=== PATIENT | female | born 1990 | race Caucasian/White ===

== ENCOUNTER 2022-06-03 08:43 | Inpatient (IN) | payer BC ==
[2022-06-03] MEDS ORDERED: Lidocaine 1% 50 ML MDV INJECT PRN (11:46)
[2022-06-03] MEDS ORDERED: Nalbuphine HCl 10 MG/ 1ML Amp IVPUSH PRN (11:46)
[2022-06-03] MEDS ORDERED: Oxytocin/Lactated Ringers 10 UNIT/1,000 ML BAG IV SCH ×2 (12:00)
[2022-06-03] MEDS: Lactated Ringers 1,000 ML IV SCH ×3 (12:20→15:20)
[2022-06-03] MEDS ORDERED: ePHEDrine 50 MG/ML SDV IVPUSH PRN (12:35)
[2022-06-03] MEDS ORDERED: fentaNYL 100 MCG/2 ML SDV EPIDUR PRN (12:35)
[2022-06-03] MEDS ORDERED: diphenhydrAMINE 50 MG/ML SDV IVPUSH PRN (12:35)
[2022-06-03] MEDS: Bupivacaine/fentaNYL/NS 100 ML Bag EPIDUR PRN ×2 (13:01→21:40)
[2022-06-04] MEDS ORDERED: Witch Hazel Medicated Pads 40/Jar TOP PRN (01:25)
[2022-06-04] MEDS ORDERED: Acetaminophen 325 MG Tab PO PRN (01:25)
[2022-06-04] MEDS ORDERED: Benzocaine/Menthol 20%-0.5% Spray 78 GM Cannister TOP PRN (01:25)
[2022-06-04] MEDS: Ibuprofen 600 MG Tab PO PRN ×3 (02:21→15:26)
[2022-06-04] MEDS: Docusate Sodium 100 MG Cap PO PRN (03:13)
[2022-06-05] MEDS: Ibuprofen 600 MG Tab PO PRN (09:01)
[2022-06-05] MEDS: Docusate Sodium 100 MG Cap PO PRN (09:01)
== END 2022-06-05 19:00 | disposition home or self-care (01) | DRG 560 ==
LOC: JD.OBCHECK 08:43 → JD.OB 08:44 → JD.OBCHECK 12:23 → JD.OB 12:24 → OBSVTOIN 06-04 00:21 → JD.OB 06-04 00:22
PROVIDERS: ADMIT Obstetrics & Gynecology; ATTEND Obstetrics & Gynecology
PROC: 10907ZC Drainage of Amniotic Fluid, Therapeutic from Products of Conception, Via Natural or Artificial Opening (ICD-10-PCS; principal; 2022-06-04)
PROC: 10E0XZZ Delivery of Products of Conception, External Approach (ICD-10-PCS; principal; 2022-06-04)
PROC: 3E0R3BZ Introduction of Anesthetic Agent into Spinal Canal, Percutaneous Approach (ICD-10-PCS; principal; 2022-06-04)
PROC: 0KQM0ZZ Repair Perineum Muscle, Open Approach (ICD-10-PCS; principal; 2022-06-04)
DX: O69.81X0 Labor and delivery complicated by cord around neck, without compression, not applicable or unspecified (principal); Z3A.39 39 weeks gestation of pregnancy; Z37.0 Single live birth; O70.1 Second degree perineal laceration during delivery
CPT/HCPCS: 36415; 51701; 51702; 59025; 59409; 85025; 86592; A9270-GY; J1200; J2590; J3010; J7120

== ENCOUNTER 2024-07-23 07:10 | Inpatient (IN) | payer BC ==
[~2024-07-23 07:10] MED LIST: Bupivacaine 0.25% 10 ML SDV ONE; Sodium Chloride 0.9% 10 ML SDV ONE
[2024-07-23] MEDS ORDERED: Lidocaine 1% 50 ML MDV INJECT PRN (07:25)
[2024-07-23] MEDS ORDERED: Calcium Carbonate 500 MG Tab.Chew PO PRN (07:25)
[2024-07-23] MEDS ORDERED: Sodium Chloride 0.9% 10 ML Syringe FLUSH PRN (07:25)
[2024-07-23] MEDS ORDERED: Ondansetron 4 MG/2 ML SDV IVPUSH PRN (07:25)
[2024-07-23] MEDS ORDERED: Oxytocin/0.9 % Sodium Chloride 30 UNIT/500 ML BAG IV SCH (07:30)
[2024-07-23 07:58] LABS: BASOPHILS PERCENT AUTO 0.4 % (0.0-1.0); EOSINOPHILS ABSOLUTE AUTO 0.1 K/mm3 (0.0-0.4); EOSINOPHILS PERCENT AUTO 1.2 % (0.0-6.0); HEMATOCRIT 36.5 % (37.0-47.0); HEMOGLOBIN 11.9 gm/dl (12.0-16.0); IMMATURE GRAN ABSOLUTE AUTO 0.03 K/mm3 (0.00-0.05); IMMATURE GRAN PERCENT AUTO 0.4 % (0.0-0.4); LYMPHOCYTES ABSOLUTE AUTO 1.8 K/mm3 (1.0-4.8); LYMPHOCYTES PERCENT AUTO 22.6 % (24.0-44.0); MEAN CORPUSCULAR HEMOGLOBIN 28.3 pg (28.0-32.0); MEAN CORPUSCULAR HGB CONC 32.6 g/dl (32.0-36.0); MEAN CORPUSCULAR VOLUME 86.7 fl (83.0-99.0); MONOCYTES ABSOLUTE AUTO 0.6 K/mm3 (0.0-0.8); NEUTROPHILS ABSOLUTE AUTO 5.5 K/mm3 (1.8-7.7); NEUTROPHILS PERCENT AUTO 68.4 % (41.0-71.0); PLATELET COUNT,PLT 178 K/mm3 (150-400); RED BLOOD CELL COUNT 4.21 M/mm3 (4.10-5.30); WHITE BLOOD CELL COUNT,WBC 8.02 K/mm3 (3.9-11.3)
[2024-07-23] MEDS: Lactated Ringers 1,000 ML IV SCH (10:25)
[2024-07-23] MEDS: Oxytocin/0.9 % Sodium Chloride 30 UNIT/500 ML BAG IV SCH (10:25)
[2024-07-23] MEDS ORDERED: ePHEDrine 50 MG/ML SDV IVPUSH PRN (13:27)
[2024-07-23] MEDS ORDERED: diphenhydrAMINE 50 MG/ML SDV IVPUSH PRN (13:27)
[2024-07-23] MEDS: fentaNYL 100 MCG/2 ML SDV EPIDUR PRN (13:37)
[2024-07-23] MEDS: Bupivacaine/fentaNYL/NS 100 ML Bag EPIDUR PRN (13:38)
[2024-07-23] MEDS ORDERED: Magnesium Hydroxide 400 MG/5 ML Susp 30 ML Cup PO PRN (19:14)
[2024-07-23] MEDS ORDERED: Hydrocortisone Acetate 25 MG Supp RECTAL PRN (19:14)
[2024-07-23] MEDS ORDERED: Simethicone 80 MG Tab.Chew PO PRN (19:14)
[2024-07-23] MEDS ORDERED: Oxytocin/Lactated Ringers 30 UNIT/500 ML BAG IV SCH (19:15)
[2024-07-23 19:16] LABS: BASOPHILS PERCENT AUTO 0.2 % (0.0-1.0); EOSINOPHILS ABSOLUTE AUTO 0.1 K/mm3 (0.0-0.4); EOSINOPHILS PERCENT AUTO 0.4 % (0.0-6.0); HEMATOCRIT 32.9 % (37.0-47.0); HEMOGLOBIN 10.6 gm/dl (12.0-16.0); IMMATURE GRAN ABSOLUTE AUTO 0.08 K/mm3 (0.00-0.05); IMMATURE GRAN PERCENT AUTO 0.5 % (0.0-0.4); LYMPHOCYTES ABSOLUTE AUTO 1.9 K/mm3 (1.0-4.8); LYMPHOCYTES PERCENT AUTO 10.6 % (24.0-44.0); MEAN CORPUSCULAR HEMOGLOBIN 28.6 pg (28.0-32.0); MEAN CORPUSCULAR HGB CONC 32.2 g/dl (32.0-36.0); MEAN CORPUSCULAR VOLUME 88.7 fl (83.0-99.0); MEAN PLATELET VOLUME 11.3 fl (9.4-12.3); MONOCYTES ABSOLUTE AUTO 0.9 K/mm3 (0.0-0.8); MONOCYTES PERCENT AUTO 5.1 % (0.0-8.0); NEUTROPHILS ABSOLUTE AUTO 14.6 K/mm3 (1.8-7.7); NEUTROPHILS PERCENT AUTO 83.2 % (41.0-71.0); PLATELET COUNT,PLT 182 K/mm3 (150-400); RED BLOOD CELL COUNT 3.71 M/mm3 (4.10-5.30); WHITE BLOOD CELL COUNT,WBC 17.55 K/mm3 (3.9-11.3)
[2024-07-23 19:33] LABS: FIBRINOGEN 309 mg/dL (187-446)
[2024-07-23 19:34] LABS: PROTHROMBIN TIME 9.8 SECONDS (9.7-12.0)
[2024-07-23 19:35] LABS: PTT,PARTIAL THROMBOPLSTIN TIME 22.9 SECONDS (21.7-31.4)
[2024-07-23 19:36] LABS: INR < 0.93
[2024-07-23] MEDS: Ibuprofen 600 MG Tab PO SCH (20:23)
[2024-07-23] MEDS: Acetaminophen 325 MG Tab PO PRN (21:16)
[2024-07-23] MEDS: Ondansetron 4 MG/2 ML SDV IVPUSH ONE (21:17)
[2024-07-23] MEDS: Witch Hazel Medicated Pads 40/Jar TOP PRN (21:42)
[2024-07-23] MEDS: Benzocaine/Menthol 20%-0.5% Spray 78 GM Cannister TOP PRN (21:42)
[2024-07-24 00:54] LABS: HEMATOCRIT 27.4 % (37.0-47.0); MEAN CORPUSCULAR HEMOGLOBIN 28.4 pg (28.0-32.0); MEAN CORPUSCULAR HGB CONC 32.5 g/dl (32.0-36.0); MEAN CORPUSCULAR VOLUME 87.5 fl (83.0-99.0); PLATELET COUNT,PLT 153 K/mm3 (150-400); RED BLOOD CELL COUNT 3.13 M/mm3 (4.10-5.30); WHITE BLOOD CELL COUNT,WBC 15.95 K/mm3 (3.9-11.3)
[2024-07-24 01:01] LABS: HEMOGLOBIN 8.9 gm/dl (12.0-16.0)
[2024-07-24] MEDS: Lactated Ringers 1,000 ML IV ONE (02:01)
[2024-07-24] MEDS: Docusate Sodium 100 MG Cap PO PRN (03:19)
[2024-07-24] MEDS: Ferrous Sulfate 324 MG Tab.EC PO SCH (07:01)
[2024-07-24] MEDS ORDERED: CAFFEINE CITRATE IV ONE (08:49)
[2024-07-24] MEDS ORDERED: SODIUM CHLORIDE 0.9% IV ONE (08:49)
[2024-07-24] MEDS: Sodium Chloride 0.9% 1,000 ML IV ONE (09:05)
[2024-07-24] MEDS: Acetaminophen/Butalbital/Caffeine 325-50-40 MG Tab PO ONE (09:24)
[2024-07-24] MEDS: Prenatal Multivitamin with Calcium/Folic Acid/Iron Tab PO SCH (09:25)
[2024-07-24] MEDS: Sodium Chloride 0.9% 1,000 ML ONE (09:29)
== END 2024-07-24 18:50 | disposition home or self-care (01) | DRG 560 ==
LOC: JD.OB 07:10 → OBSVTOIN 19:04 → JD.OB 19:04
PROVIDERS: ADMIT Obstetrics & Gynecology; ATTEND Obstetrics & Gynecology
PROC: 10E0XZZ Delivery of Products of Conception, External Approach (ICD-10-PCS; principal; 2024-07-23)
PROC: 10907ZC Drainage of Amniotic Fluid, Therapeutic from Products of Conception, Via Natural or Artificial Opening (ICD-10-PCS; 2024-07-23)
PROC: 3E033VJ Introduction of Other Hormone into Peripheral Vein, Percutaneous Approach (ICD-10-PCS; 2024-07-23)
PROC: 0KQM0ZZ Repair Perineum Muscle, Open Approach (ICD-10-PCS; 2024-07-23)
PROC: 3E0R3BZ Introduction of Anesthetic Agent into Spinal Canal, Percutaneous Approach (ICD-10-PCS; 2024-07-23)
PROC: 00HU33Z Insertion of Infusion Device into Spinal Canal, Percutaneous Approach (ICD-10-PCS; 2024-07-23)
DX: O99.214 Obesity complicating childbirth (principal); O72.1 Other immediate postpartum hemorrhage; Z14.1 Cystic fibrosis carrier; O70.1 Second degree perineal laceration during delivery; Z37.0 Single live birth
CPT/HCPCS: 36415; 51701; 59025; 59409; 85025; 85027; 85384; 85610; 85730; 86592; 86850; 86900; 86901; A9270-GY; C1758; J0665; J2405; J3010; J3490; J7030; J7120; J7999